=== PATIENT | male | born 1945 | race Caucasian/White ===

== ENCOUNTER → 2023-09-07 09:39 | Outpatient (CLI) | payer MEDICARE, SELFPAY ==
--- NOTE | 2023-09-07 | DI.RAD.S_ITS ---
PROCEDURE: FL BARIUM SWALLOW W SPEECH INDICATIONS: Dysphagia, unspecified COMPARISON: None. TECHNIQUE: Examination was conducted in conjunction with speech pathology per standard protocol. In the lateral projection, filming was performed of the patient swallowing. AP projection filming may also be performed with patient swallowing. COMPARISON: FINDINGS: Function: The oral preparatory phase appears normal, with proper containment. The subsequent oral propulsive phase, pharyngeal phase, and esophageal phase of swallowing also appear normal with all proffered substances. No laryngotracheal penetration or aspiration. No pathologic vallecular pooling. Morphology: No cricopharyngeal bar is identified. No cervical esophageal webs. No Zenker's diverticulum. No strictures. IMPRESSION: No aspiration or penetration with barium. Please see dedicated speech pathologist's note for further discussion. Dictated by: Terrance Paz M.D. on 09/07/2023 at 11:05 Approved by: Terrance Paz M.D. on 09/07/2023 at 11:05
--- NOTE | 2023-09-07 12:31 | ST.SWALLOW ---
Visit Care Team Role Provider Type Doctor MD Kapil Primary Care Provider Non-Staff Specialty: Medical Address: Phone: Fax: Email: Mehul Vail MD Attending Provider Physician Referring Provider Specialty: Ear, Nose, Throat Address: [address] [place] [address], [id number] Email: [email or web address] Modified Barium Swallow Study [employer]IST Modified Barium Swallow Study Start: 09/07/23 10:39 Freq: Status: Active Protocol: Document 09/07/23 10:39 LNK (Rec: 09/07/23 10:58 LNK [id number]) Modified Barium Swallow Study Total Time Visit Start Time 10:00 Visit Stop Time 10:35 Total Visit Minutes 35 Referral Referring Physician AKASH Jane Reason for Referral dysphagia Setting Setting Outpatient Care Patient Information Identification Type Name,Date of Patient History Pt was seen for a Modified Barium Swallow Study at the referral of Dr. Vail, ENT. According to the pt, he has a frequent cough when he begins eating and/or starts a meal. He described the cough as a tickle, starting after the initial swallow, and continuing while eating. He noted that bread, nuts, crackers are food types that will trigger coughing. Pt has a medical history of migraine, COPD, asthma, allergies,GERD and chronic cough. Subjective Observations Pt was seated in the fluoroscopy chair with directions and procedures described for him. Pt indicate he understood and agreed to proceed. Pt's voice was observed to be very hoarse with a glottal gant quality. A slight wet quality was noted as he spoke. Dr. Vail examined pt's vocal folds via indirect observation noting the vocal folds to be grossly WNL. Patient Positioning Position View Lat-A/P Imaging Lateral View Textures Administered Trials Presented Thin Liquid via Spoon (IDDSI 0 ),Thin Liquid via Cup (IDDSI 0 ),Extremely Thick Liquid via Spoon (IDDSI 4),Regular (IDDSI 7) Barium Tablet Yes The IDDSI Framework Protocol: IDDSI.1 Oral Impairment Source: The Modified Barium Swallow Impairment Profile (MBSImP??) Lip Closure Interlabial escape; no progression to anterior lip Tongue Control During Bolus Hold Cohesive bolus between tongue to palatal seal Bolus Preparation/Mastication Timely & efficient chewing & mashing Bolus Transport/Lingual Motion Brisk tongue motion Oral Residue Trace residue lining oral structures Location Tongue Initiation of Pharyngeal Swallow Bolus head at posterior angle of ramus (first hyoid excursion) Additional Oral Impairment Observations OME and DKS were obsweved to be WNL. Dentition consisted of an upper denture and natural lower teeth. Mastication was adequate with a rotary chew pattern. Bolus formation, control and AP transition were noted to be WNL. Pharyngeal Impairment Source: The Modified Barium Swallow Impairment Profile (MBSImP??) Soft Palate Elevation No bolus between soft palate & pharyngeal wall Laryngeal Elevation Comp.sup.move.thyroid cart.w/ comp.approx.arytenoids to epiglot petiole Anterior Hyoid Excursion Complete anterior movement Epiglottic Movement Complete inversion Laryngeal Vestibular Closure Complete; no air/contrast in laryngeal vestibule Pharyngoesophageal Segment Opening Complete distention & complete duration; no obstruction of flow Tongue Base Retraction Narrow column of contrast/air betwn tongue base & post. pharyngeal wall Pharyngeal Residue Trace residue within/on pharyngeal structures Location Valleculae Additional Pharyngeal Impairment Pt's pharyngeal swallow phase Observations was noted to be WFL. Minimal residue observed post swallow. Mild tongue base weakness noted but overall appeared to be WFL. A/P View The IDDSI Framework Protocol: IDDSI.1 A/P View Observations Esophageal Clearance Upright Position Esophageal retention Additional A-P Observations Barium coating of the esophagus was noted initially, but cleared with a swallow of water. A barium tablet was swallowed and passed through the esophagus in a timely manner. Mild esophageal retention observed at the GE junction. Clinical Impressions Dysphagia Type WNL Findings Pt presented with swallowing WNL. Mild tongue base weakness was noted and my warrant base of tongue exercises. However, pt's very hoarse with a slight wet quality is of concern. Given his previous history of smoking, COPD,GERD, asthma, and chronic cough, further assessment with Stroboscopy is recommended. Additionally, given the pt's age, there is a possibility of presbylaryngis, which may be contributing to the frequent cough and/or throat tickle he reported. Voice therapy my be indicated based on stroboscopic results. Rehabilitation Potential Excellent Patient Appropriate for Therapy Yes: Base of tongue exercises Recommendations Diet Comments No diet changes are recommended at this time. Treatment Plan Recommended Referrals ENT Consult Additional Recommended Referrals [facility] referral for stroboscopic evaluation
== END ==
PROVIDERS: Referring Provider Otolaryngology; Visit Provider Otolaryngology
DX: R13.10 Dysphagia, unspecified (principal); R05.3 Chronic cough
CPT/HCPCS: 74230; 92611

== ENCOUNTER → 2024-11-17 09:50 | Outpatient (CLI) | payer MEDICARE, SELFPAY | PROVIDERS: PCP Family Medicine; Referring Provider Internal Medicine; Visit Provider Internal Medicine | DX: J45.50 Severe persistent asthma, uncomplicated (principal); R06.02 Shortness of breath; J44.9 Chronic obstructive pulmonary disease, unspecified; Z87.891 Personal history of nicotine dependence; R94.2 Abnormal results of pulmonary function studies | CPT/HCPCS: 94060; 94726; 94729 ==

== ENCOUNTER → 2025-04-28 13:15 | Outpatient (CLI) | payer MEDICARE, SELFPAY ==
--- NOTE | 2025-04-28 13:19 | DI.RAD.S_ITS ---
PROCEDURE: XR CHEST 2V INDICATIONS: DYSPNEA TECHNIQUE: 2 views of the chest were acquired. COMPARISON: None. FINDINGS: Surgical changes and devices: Leadless pacemaking device. Lungs and pleura: Lungs are clear. No pleural effusions or pneumothorax. Mediastinum: Mediastinal contours are normal. Heart size is normal. Bones and chest wall: No suspicious bony abnormalities. Soft tissues appear unremarkable. IMPRESSION: No acute cardiopulmonary abnormality is seen. Dictated by: Elijah Palacio M.D. on 04/29/2025 at 14:34 Approved by: Elijah Palacio M.D. on 04/29/2025 at 14:35
== END ==
PROVIDERS: PCP Family Medicine; Referring Provider Family Medicine; Visit Provider Family Medicine
DX: R06.00 Dyspnea, unspecified (principal)
CPT/HCPCS: 71046